=== PATIENT | female | born 1965 | race Caucasian/White ===

== ENCOUNTER → 2024-02-05 06:02 | Outpatient (REF) | payer BC, SELFPAY ==
[2024-02-05 10:42] LABS: Blood Urea Nitrogen 17 mg/dl (7-17); Calcium 9.1 mg/dl (8.4-10.2); Carbon Dioxide 27 mmol/L (22-30); Chloride 102 mmol/L (98-107); Glucose 88 mg/dl (70-99); Potassium 4.5 mmol/L (3.5-5.1); Sodium 138 mmol/L (135-145); eGFR > 60.00
[2024-02-05 13:14] LABS: Glycohemoglobin (HgbA1c) 5.8 % (4.0-5.6)
== END ==
LOC: HWLAB 06:02
PROVIDERS: ATTENDING PHYSICIAN Internal Medicine
DX: Z00.00 Encounter for general adult medical examination without abnormal findings (principal); Z90.5 Acquired absence of kidney; R73.09 Other abnormal glucose
CPT/HCPCS: 36415; 80048; 83036

== ENCOUNTER → 2024-06-30 13:46 | Outpatient (REF) | payer BC, SELFPAY | LOC: UCDH 13:46 | PROVIDERS: ATTENDING PHYSICIAN Emergency Medicine; FAMILY PHYSICIAN Internal Medicine | DX: S67.10XA Crushing injury of unspecified finger(s), initial encounter (principal) | CPT/HCPCS: 73140 ==

== ENCOUNTER 2025-03-25 10:35 | Emergency (ER) | payer BC, SELFPAY ==
[2025-03-25 10:41] VITALS: BP 149/77
[2025-03-25 11:23] VITALS: BP 137/72
[2025-03-25 11:24] VITALS: BMI 23.4
[2025-03-25 11:56] LABS: Hematocrit 39.8 % (37.0-47.0); Hemoglobin 14.3 g/dL (12.0-16.0); Mean Corp Hgb Conc. 35.9 g/dL (33.0-37.0); Mean Corpuscular Volume 90.7 fL (81.0-99.0); Nucleated Red Blood Cells % 0 %; Platelet Count 188 10^3/uL (130-400); Red Cell Dist. Width 11.7 % (11.5-14.5)
[2025-03-25 12:00] VITALS: BP 117/69
[2025-03-25 12:11] LABS: ALT (SGPT) 20 U/L (0-35); AST (SGOT) 16 U/L (14-36); Albumin 4.6 g/dl (3.5-5.0); Alkaline Phosphatase 67 U/L (38-126); Blood Urea Nitrogen 18 mg/dl (7-17); Calcium 9.2 mg/dl (8.4-10.2); Carbon Dioxide 26 mmol/L (22-30); Chloride 106 mmol/L (98-107); Estimated Creatinine Clearance 64 ml/min; Glucose 93 mg/dl (70-99); Potassium 4.3 mmol/L (3.5-5.1); Sodium 140 mmol/L (135-145); Total Protein 6.9 g/dl (6.3-8.2); eGFR > 60.00
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
[2025-03-25 12:26] LABS: Troponin I < 0.012 ng/ml
[2025-03-25] MEDS: NSS 1000 IV (12:46)
[2025-03-25] MEDS: TYLENOL 650 MG PO (12:46)
[2025-03-25 14:45] VITALS: BP 111/59
--- NOTE | 2025-03-25 15:02 | EEG.RPT ---
Electroencephalogram Report
Recording
Date of EE03/25/25
Type of EEG: Routine
Length of EEG recordin minutes
Done with Video Recording: Yes
Patient Status: Emergency Room
Recording Conditions: Awake and Drowsy
Hyperventilation Performed: No
Photic Stimulation Performed: Yes
Report
LESS THAN 1 HOUR EEG INTERPRETATION:
Unremarkable EEG for age
CLINICAL CORRELATION:
A normal EEG does not rule out a diagnosis of epilepsy. If clinical suspicion for seizure persists, a prolonged recording may be warranted.
Clinical correlation is advised.
METHODS:
A 21 channel digitized electroencephalogram (EEG) was performed using the 10/20 international system of electrode placement and one-lead of ECG recorded. The [employer] quantitative EEG system was utilized.
ELECTROENCEPHALOGRAPHER IMPRESSION(S):
Quality of study
Good
Background
There was an unremarkable anterior-posterior voltage gradient of alpha frequency.
With eye opening the background activity changed to a low voltage mixture of frequencies.
There were no significant asymmetries of background activity noted.
Sleep
Drowsiness present
Stage 1 present
Stage 2 present
Photic Stimulation
No activation
ECG
Normal sinus rhythm
[2025-03-25 15:24] VITALS: BP 104/58
== END 2025-03-25 15:33 | disposition home or self-care (01) ==
LOC: EMR 10:35
PROVIDERS: EMERGENCY PHYSICIAN Student in an Organized Health Care Education/Training Program; FAMILY PHYSICIAN Internal Medicine
DX: G45.4 Transient global amnesia (principal)
CPT/HCPCS: 99284; 96360; 70450; 80053; 84484; 85025; 93005; 95816

== ENCOUNTER → 2025-04-05 09:07 | Outpatient (REF) | payer BC, SELFPAY | LOC: PAVMRI 09:07 | PROVIDERS: ATTENDING PHYSICIAN Internal Medicine | DX: G45.4 Transient global amnesia (principal) | CPT/HCPCS: 70553; A9575 ==

== ENCOUNTER → 2025-06-07 10:04 | Outpatient (REF) | payer BC, SELFPAY | LOC: WDC 10:04 | PROVIDERS: ATTENDING PHYSICIAN Internal Medicine | DX: N63.21 Unspecified lump in the left breast, upper outer quadrant (principal); R22.32 Localized swelling, mass and lump, left upper limb | CPT/HCPCS: 76642; 77061; 77065 ==